=== PATIENT | male | born 1935 | race Caucasian/White ===

== ENCOUNTER → 2017-11-19 | Outpatient (CLI) | payer MEDICARE, BC ==
--- NOTE | 2017-11-19 18:18 | US ---
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 No hx of TIA or stroke, no HTN EXAM MEASUREMENTS: RIGHT: Peak Systolic Velocity (PSV) cm/sec ----- Right CCA: 74.1 ----- Right ICA: 119.4 ----- Right ECA: 147.6 ICA/CCA ratio: 1.6 RIGHT: End Diastole cm/sec ----- Right CCA: 13.9 ----- Right ICA: 16.0 ----- Right ECA: 19.5 LEFT: Peak Systolic Velocity (PSV) cm/sec ----- Left CCA: 82.7 ----- Left ICA: 86.7 ----- Left ECA: 151.6 ICA/CCA ratio: 1.0 LEFT: End Diastole cm/sec ----- Left CCA: 16.7 ----- Left ICA: 23.0 ----- Left ECA: 11.6 VERTEBRALS (direction of flow): Right Vertebral: Antegrade Left Vertebral: Antegrade Rhythm: Normal No significant stenosis. Plaque seen in bilateral bulbs. No wall thickening. Elevated right ECA, l eft prox CCA, left Mid CCA, and left ECA velocities. IMPRESSION: There is antegrade flow in the vertebral arteries. The images and measurements suggest 5 0-70% stenosis in the right external carotid artery. There is 30-40% stenosis in both internal caroti d arteries. Criteria for Assigning % of Stenosis / Diameter reduction (Estimation based on the indirect measurements of the internal carotid artery velocities (ICA PSV). 1. Normal (no stenosis)=ICA PSV < 125 cm/s: ratio < 2.0: ICA EDV<40 cm/s. 2. Less than 50% stenosis=ICA PSV < 125 cm/s: ratio < 2.0: ICA EDV<40 cm/s. 3. 50 to 69% stenosis=ICA PSV of 125 to 230 cm/s: ration 2.0 ? 4.0: ICA EDV 40-100 cm/s. 4. Greater than 70% stenosis to near occlusion= ICA PSV > 230 cm/s: ratio > 4.0: ICA EDV > 100 cm/s. 5. Near occlusion= ICA PSV velocities may be low or undetectable: variable ratio and ICA EDV. 6. Total occlusion=unable to detect flow.
== END | disposition home or self-care (01) ==
LOC: RADUSWWP 16:50
PROVIDERS: ATTEND Internal Medicine Geriatric Medicine
DX: I65.23 Occlusion and stenosis of bilateral carotid arteries (principal)
CPT/HCPCS: 93880

== ENCOUNTER → 2019-08-20 | Outpatient (CLI) | payer MEDICARE ==
--- NOTE | 2019-08-20 15:49 | US ---
EXAMINATION TYPE: US kidneys/renal and bladder DATE OF EXAM: 08/20/2019 COMPARISON: NONE CLINICAL HISTORY: N18.9 CKD. lt flank pain EXAM MEASUREMENTS: Right Kidney: 9.9 x 4.7 x 5.1 cm Left Kidney: 11.9 x 4.6 x 5.9 cm Right Kidney: 2.4cm mid pole simple cyst Left Kidney: 1.4cm inferior pole simple cyst Bladder: wnl Bilateral Jets seen: yes IMPRESSION: 1. Bilateral simple appearing renal cysts
== END | disposition home or self-care (01) ==
LOC: RADUSWWP 14:48
PROVIDERS: ATTEND Internal Medicine Geriatric Medicine
DX: N18.9 Chronic kidney disease, unspecified (principal)
CPT/HCPCS: 76770

== ENCOUNTER 2021-01-12 06:07 | Day surgery (SDC) | payer MEDICARE ==
[2021-01-06 14:12] VITALS: BMI 28.8
[~2021-01-12 06:07] MED LIST: LACTATED RINGERS 1,000 ML IV SCH; LIDOCAINE 1% (10MG/ML) FOR IV START INTRADERMA PRN; MOXIFLOXACIN HCL 0.5% DROPS 3 ML BTL OP PRN; TETRACAINE 0.5% OPHTH (PF) DROPS 4 ML BTL OP PRN; TIMOLOL 0.5% OPHTH DROPS 5 ML BTL OP PRN
[2021-01-12] MEDS: CYCLOPENTOLATE 1% OPHTH SOLN 2 ML BTL OP PRN ×3 (06:45→06:56)
[2021-01-12] MEDS: PHENYLEPHRINE 2.5% OPHTH DRP 2ML OP PRN ×3 (06:48→07:00)
[2021-01-12 07:05] VITALS: TEMP 97
[2021-01-12 07:11] LABS: Glucose,Whole Blood 155 mg/dL (75-99)
[2021-01-12] MEDS ORDERED: fentaNYL (PF) 50 MCG/ML 2 ML AMP ONE (07:19)
[2021-01-12] MEDS ORDERED: MIDAZOLAM 2 MG/2 ML VIAL ONE (07:19)
[2021-01-12] MEDS ORDERED: LIDOCAINE 1% (PF) 10MG/ML VIAL SQ ONE (07:33)
[2021-01-12] MEDS ORDERED: BALANCED SALT IRRIG SOLN COMB2 15 ML IRRIG.SOLN INTRAOCULA ONE (07:33)
[2021-01-12] MEDS ORDERED: HYALURONATE SODIUM INTRAOCULAR 1 EACH SYRINGE (12MG/ML) INTRAOCULA ONE (07:33)
[2021-01-12] MEDS ORDERED: EPINEPHrine (PF) 0.3 ML in BALANCED SALT IRRIG SOLN COMB2 500 ML IRRIGATION ONE (07:36)
[2021-01-12] MEDS ORDERED: EPINEPHrine 1 MG/ML 1 ML AMP TOPICAL ONE (07:40)
--- NOTE | 2021-01-12 07:59 | P.OP ---
Date of Procedure: 01/12/21 Preoperative Diagnosis: NS & CS & floppy iris Postoperative Diagnosis: same Procedure(s) Performed: PIOL, OD Implants: [id number] 19.50 & 13 mm CTR Anesthesia: MAC Surgeon: Carlos Enrique Auguste Pathology: none sent Condition: stable Disposition: same day Indications for Procedure: blurry vision Operative Findings: no complications
[2021-01-12 08:04] VITALS: RESP 16
[2021-01-12 08:15] VITALS: BP 162/65; PULSE 92
--- NOTE | 2021-01-12 21:59 | OP ---
OPERATIVE REPORT DATE OF SURGERY: 01/12/2021 PROCEDURE: Phacoemulsification of cataract and intraocular lens implant of the right eye. PREOPERATIVE DIAGNOSES: 1. Nuclear sclerosis, cortical sclerosis. 2. History of prostatic hypertrophy with outlet obstruction. 3. Trauma to the right eye. POSTOPERATIVE DIAGNOSES: 1. Nuclear sclerosis, cortical sclerosis. 2. History of prostatic hypertrophy with outlet obstruction. 3. Trauma to the right eye. 4. Floppy iris syndrome. SURGEON: Dr. Carlos Enrique Auguste. ANESTHESIA: Topical. ESTIMATED BLOOD LOSS: None. SPECIMEN TAKEN: None. NARRATIVE: After obtaining the appropriate consent, the patient was brought to the operating room. There he was placed under cardiac monitoring, prepped and draped in the usual sterile manner. He was approached from his right temporal side, and at initial presentation the pupil was irregularly dilated and insufficient in diameter to facilitate cataract removal. Using 1% lidocaine MPF with 1:1000 epinephrine MPF and balanced salt solution in a ratio 1:2:1, this was injected into the anterior chamber from the paracentesis site. The eye was then stabilized using Amvisc. At the 9 o'clock position, a 2.5 mm keratome was used to create a self-sealing corneal flap incision. Through this opening a 7 mm Malyugin ring was introduced into the anterior chamber and inserted on the pupillary sphincter. The lens did not appear to be particularly unsound when using a cystotome, which was used to begin a continuous tear capsulorrhexis which was completed using the Utrata forceps. Hydrodissection and hydrodelineation of the lens was accomplished with balanced salt solution. Phacoemulsification of the lens utilizing phaco chop was accomplished in 17.57 seconds at 20% power. Additional xylocaine/epinephrine mix was instilled into the anterior chamber. This was followed by removal of the remaining cortex from the capsular bag. Though there did not appear to be any significant amount of zonular laxity, the indication of a circular impact leonardo on the posterior capsule of the lens was suggestive that there may potentially be a problem down the road. Therefore a 13 mm capsular tension ring was inserted into the capsular bag without difficulty. This was followed by placement of a [employer]ch [employer] Lomb MX60 19.5 diopter. The remaining viscoelastic was removed from in and around the intraocular lens. The Malyugin ring was removed from the anterior chamber. This was followed by removal of the remaining viscoelastic from the anterior chamber. The eye was then brought to normal intraocular pressure through the paracentesis port and wound was ensured to be watertight. He then received 2 drops of 0.5% timolol followed by 2 drops of moxifloxacin, was then lightly patched and shielded in the usual manner. There were no complications from the procedure. He tolerated the procedure well and was returned to Outpatient Recovery in good condition. MMFABY / [place]: [id number] /
== END 2021-01-12 08:45 | disposition home or self-care (01) ==
LOC: OR 06:07
PROVIDERS: ATTEND Ophthalmology
DX: E11.36 Type 2 diabetes mellitus with diabetic cataract (principal); H25.13 Age-related nuclear cataract, bilateral; H25.013 Cortical age-related cataract, bilateral; H26.101 Unspecified traumatic cataract, right eye; H35.033 Hypertensive retinopathy, bilateral; Z98.890 Other specified postprocedural states; Z79.84 Long term (current) use of oral hypoglycemic drugs; Z79.899 Other long term (current) drug therapy; H35.30 Unspecified macular degeneration; N28.9 Disorder of kidney and ureter, unspecified; Z82.49 Family history of ischemic heart disease and other diseases of the circulatory system; Z84.1 Family history of disorders of kidney and ureter; Z84.89 Family history of other specified conditions; N40.0 Benign prostatic hyperplasia without lower urinary tract symptoms; Z97.2 Presence of dental prosthetic device (complete) (partial); Z90.3 Acquired absence of stomach [part of]; H21.81 Floppy iris syndrome
CPT/HCPCS: 66984; L8610; C1780; J2250; J0171 ×2; J3010; J2001

== ENCOUNTER 2021-02-02 06:42 | Day surgery (SDC) | payer MEDICARE ==
[2021-01-31 09:32] VITALS: BMI 28.8
[~2021-02-02 06:42] MED LIST changes: -LIDOCAINE 1% (10MG/ML) FOR IV START INTRADERMA PRN; -MOXIFLOXACIN HCL 0.5% DROPS 3 ML BTL OP PRN; -TIMOLOL 0.5% OPHTH DROPS 5 ML BTL OP PRN
[2021-02-02] MEDS: PHENYLEPHRINE 2.5% OPHTH DRP 2ML OP PRN ×3 (07:20→07:34)
[2021-02-02 07:23] VITALS: RESP 16; TEMP 97.7
[2021-02-02] MEDS: CYCLOPENTOLATE 1% OPHTH SOLN 2 ML BTL OP PRN ×3 (07:23→07:37)
[2021-02-02 07:29] LABS: Glucose,Whole Blood 136 mg/dL (75-99)
[2021-02-02] MEDS ORDERED: MIDAZOLAM 2 MG/2 ML VIAL ONE (08:05)
[2021-02-02] MEDS ORDERED: fentaNYL (PF) 50 MCG/ML 2 ML AMP ONE (08:05)
[2021-02-02] MEDS ORDERED: HYALURONATE SODIUM INTRAOCULAR 1 EACH SYRINGE (12MG/ML) INTRAOCULA ONE ×2 (08:15→08:27)
[2021-02-02] MEDS ORDERED: BALANCED SALT IRRIG SOLN COMB2 15 ML IRRIG.SOLN IRRIGATION ONE ×2 (08:16→08:27)
[2021-02-02] MEDS ORDERED: LIDOCAINE 1% (PF) 10MG/ML VIAL MISCELLANE ONE ×3 (08:17→08:27)
[2021-02-02] MEDS ORDERED: EPINEPHrine (PF) 0.3 ML in BALANCED SALT IRRIG SOLN COMB2 500 ML IRRIGATION ONE ×4 (08:20)
[2021-02-02] MEDS ORDERED: EPINEPHrine (PF) 1 MG/ML AMP MISCELLANE ONE (08:23)
[2021-02-02] MEDS: MOXIFLOXACIN HCL 0.5% DROPS 3 ML BTL OP PRN ×2 (08:34→08:37)
[2021-02-02] MEDS: TIMOLOL 0.5% OPHTH DROPS 5 ML BTL OP PRN ×2 (08:34→08:37)
--- NOTE | 2021-02-02 08:43 | P.OP ---
Date of Procedure: 02/02/21 Preoperative Diagnosis: NS & CS flomax exposure. Postoperative Diagnosis: same Procedure(s) Performed: PIOL, OS Implants: [id number] 19.50 Anesthesia: MAC Surgeon: Carlos Enrique Auguste Pathology: none sent Condition: stable Disposition: same day Indications for Procedure: blurry vision Operative Findings: no complications
[2021-02-02 09:02] VITALS: BP 160/86; PULSE 79
--- NOTE | 2021-02-02 16:00 | OP ---
OPERATIVE REPORT DATE OF SURGERY: February 02, 2021. PROCEDURE: Phacoemulsification of cataract and intraocular lens implant of the left eye. PREOPERATIVE DIAGNOSIS: Nuclear sclerosis, cortical sclerosis and exposure to Flomax. POSTOPERATIVE DIAGNOSIS: Nuclear sclerosis, cortical sclerosis and exposure to Flomax with floppy iris syndrome. SURGEON: Dr. Carlos Enrique Auguste. ANESTHESIA: Topical. ESTIMATED BLOOD LOSS: None. SPECIMEN TAKEN: None. NARRATIVE: After obtaining the appropriate consent, the patient was brought to the operating room. There, he was placed under cardiac monitoring, prepped and draped in the usual sterile manner. He was approached from his left temporal side and at the 5 o'clock position an an MVR blade was used to create a paracentesis port. Through this opening, 1% Xylocaine MPF with 1:1000 epinephrine MPF and balanced salt solution in a ratio of 1:2:1 was injected into the anterior chamber. This was followed by stabilization of the anterior chamber with Amvisc. At the 3 o'clock position a 2.5 mm keratome was used to create a self-sealing corneal flap incision. Through this opening, a 7 mm Malyugin ring was inserted on the pupillary sphincter due to poor dilation and irregularity of that dilation. This was followed by introduction of a cystotome which was used to begin a continuous tear capsulorrhexis which was then completed using the Utrata forceps. Hydrodissection and hydrodelineation of the lens was accomplished with balanced salt solution. Phacoemulsification of the lens utilizing phaco chop was accomplished in 18.93 seconds at 19% power. Additional Xylocaine MPF epinephrine mixture was injected into the anterior chamber. This was followed by removal of the remaining cortex under irrigation and aspiration as well as careful polishing of the posterior capsule in capsule vacuum mode. Additional Amvisc was then used to stabilize the capsular bag and a Bausch [employer] Lomb MX60E 19.5 diopter posterior chamber intraocular lens was then injected into the capsular bag without difficulty. Prior to removal of the Malyugin ring, viscoelastic was removed from underneath the intraocular lens and then followed by disinsertion and then removal of the Malyugin ring from the pupillary sphincter. The remaining viscoelastic was then removed from the anterior chamber. The eye was brought to normal intraocular pressure through the paracentesis port with balanced salt solution. He then received 2 drops of 0.5% timolol followed by 2 drops of moxifloxacin was then lightly patched and shielded in the usual manner. There were no complications from the procedure. He tolerated the procedure well and was returned to outpatient recovery in good condition. COOPER / [place]: [id number] /
== END 2021-02-02 09:17 | disposition home or self-care (01) ==
LOC: OR 06:42
PROVIDERS: ATTEND Ophthalmology
DX: E11.36 Type 2 diabetes mellitus with diabetic cataract (principal); H25.12 Age-related nuclear cataract, left eye; H25.012 Cortical age-related cataract, left eye; H35.033 Hypertensive retinopathy, bilateral; Z86.19 Personal history of other infectious and parasitic diseases; Z79.84 Long term (current) use of oral hypoglycemic drugs; Z79.899 Other long term (current) drug therapy; H35.30 Unspecified macular degeneration; M54.9 Dorsalgia, unspecified; Z82.49 Family history of ischemic heart disease and other diseases of the circulatory system; Z84.1 Family history of disorders of kidney and ureter; Z98.41 Cataract extraction status, right eye; N40.0 Benign prostatic hyperplasia without lower urinary tract symptoms; Z97.2 Presence of dental prosthetic device (complete) (partial)
CPT/HCPCS: 66984; C1780; J2250; J0171; J3010; J2001

== ENCOUNTER → 2021-02-14 | Outpatient (CLI) | payer MEDICARE ==
--- NOTE | 2021-02-14 13:04 | US ---
EXAMINATION TYPE: US carotid duplex BILAT DATE OF EXAM: 02/14/2021 COMPARISON: Carotid ultrasound 2018 CLINICAL HISTORY: I65.21 Occlusion and stenosis of right carotid art. EXAM MEASUREMENTS: RIGHT: Peak Systolic Velocity (PSV) cm/sec ----- Right CCA: 102.6 ----- Right ICA: 247.0 ----- Right ECA: 292.9 ICA/CCA ratio: 2.4 RIGHT: End Diastole cm/sec ----- Right CCA: 16.9 ----- Right ICA: 37.9 ----- Right ECA: 24.6 LEFT: Peak Systolic Velocity (PSV) cm/sec ----- Left CCA: 110.8 ----- Left ICA: 95.3 ----- Left ECA: 249.8 ICA/CCA ratio: 0.9 LEFT: End Diastole cm/sec ----- Left CCA: 17.6 ----- Left ICA: 13.7 ----- Left ECA: 18.4 VERTEBRALS (direction of flow): Right Vertebral: Antegrade Left Vertebral: flow not detected Rhythm: Normal Severe shadowing plaque at bilateral carotid bulbs redemonstrated. Right internal carotid artery now shows increased peak systolic velocity and abnormal ratio. IMPRESSION: Severe atherosclerotic change bilaterally with stenosis 50-69% in the right internal car otid artery now likely present. Patent left vertebral artery not identified on current study. Conside r CTA or MRA of the neck to further evaluate. Criteria for Assigning % of Stenosis / Diameter reduction (Estimation based on the indirect measurements of the internal carotid artery velocities (ICA PSV). 1. Normal (no stenosis)=ICA PSV < 125 cm/s: ratio < 2.0: ICA EDV<40 cm/s. 2. Less than 50% stenosis=ICA PSV < 125 cm/s: ratio < 2.0: ICA EDV<40 cm/s. 3. 50 to 69% stenosis=ICA PSV of 125 to 230 cm/s: ration 2.0 ? 4.0: ICA EDV 40-100 cm/s. 4. Greater than 70% stenosis to near occlusion= ICA PSV > 230 cm/s: ratio > 4.0: ICA EDV > 100 cm/s. 5. Near occlusion= ICA PSV velocities may be low or undetectable: variable ratio and ICA EDV. 6. Total occlusion=unable to detect flow.
== END | disposition home or self-care (01) ==
LOC: RADUSWWP 12:07
PROVIDERS: ATTEND Internal Medicine Geriatric Medicine
DX: I65.23 Occlusion and stenosis of bilateral carotid arteries (principal)
CPT/HCPCS: 93880

== ENCOUNTER → 2021-02-28 | Outpatient (CLI) | payer MEDICARE ==
--- NOTE | 2021-02-28 15:50 | CT ---
EXAMINATION TYPE: CT angio neck DATE OF EXAM: 02/28/2021 HISTORY: Occlusion of bilateral carotid arteries. Hypertension. COMPARISON: Carotid ultrasound [address] DLP: 283.9 mGycm. Automated Exposure Control for Dose Reduction was Utilized. TECHNIQUE: CTA scan of the neck is performed with IV Contrast, patient injected with 65 mL of Isovue 370, axial images are obtained, 3-D reconstructive images created on an independent workstation and reviewed. FINDINGS: Carotid/Vascular Structures: Normal 3 vessel origin from aortic arch. Krjp-gc-[id number] peripheral non calcified plaque left subclavian artery. No significant stenosis. Mild to moderate calcified plaque i n the arch. Normal origin right common carotid artery from right brachiocephalic artery. Some tortuou s course to the common carotid arteries proximally bilaterally. No significant plaque or stenosis. Th ere is mild to moderate peripheral calcified plaque at bilateral carotid bulb level. There is extensi on of mild/moderate calcified plaque into the left proximal internal carotid artery. There is torturo us course midsegment. Mild calcified plaque distal left internal carotid artery. No significant steno sis. There is more prominent moderate mixed plaque in the proximal right internal carotid artery caus ing stenosis approaching but felt under 50%. Tortuous course midsegment. [id number] calcified p laque distally. No significant stenosis. Patent bilateral external carotid arteries without significa nt plaque or stenosis. Dominant right vertebral artery. Vertebral arteries are patent to basilar junction. Other: Slight grade 1 retrolisthesis C3 on C4. Moderate multilevel disc space narrowing. [id number] rate underlying emphysematous change in the upper lungs. IMPRESSION: No significant stenosis in common or internal carotid arteries bilaterally.
== END | disposition home or self-care (01) ==
LOC: RADCTMAIN 14:05
PROVIDERS: ATTEND Internal Medicine Geriatric Medicine
DX: I65.23 Occlusion and stenosis of bilateral carotid arteries (principal)
CPT/HCPCS: 82565; 84520; 70498; 36415; Q9967